=== PATIENT | male | born 1965 | race Caucasian/White ===

== ENCOUNTER 2023-08-17 10:14 | Emergency (ER) | payer OTHER, SELFPAY ==
[2023-08-17 10:15] VITALS: BP 137/104
--- NOTE | 2023-08-17 13:35 | ED.GENMED ---
History of Present Illness
General
Chief Complaint: Rectal Bleeding
Source: patient
Exam Limitations: none
Time Seen by Provider: 08/17/23 10:47
Nursing documentation reviewed up to this point in time: agreed with
Travel History
Have you had any contact with someone who has COVID-19?: No
Do you have any symptoms of coronavirus? Fever > 100 degrees, chills, cough, shortness of breath, sore throat, loss of taste or smell, muscle aches, or headache?: No
History of Present Illness
History of Present Illness:
Patient presents to ED for evaluation for possible bleeding external hemorrhoid, noted today. Patient states that he has known for some time that he does have small external hemorrhoid, which had blood in the past intermittently with large bowel
movement or when he wiped. Today, when he had finished showering, when he was drying himself off, noted that there was blood on his towel. Since then, he has had continued bleeding when wiping. Denies rectal pain. Denies fever or chills. Denies
abdominal pain. Denies nausea or vomiting. Denies recent change in medications or diet.
Past History
Past History
ED Past Medical History: COPD and Psychiatric
ED Past Surgical History: None
Social History
Tobacco: Former smoker
Alcohol: None
Review of Systems
Review of Systems
Allergies reviewed?: Yes
All Other Systems: ROS reviewed and negative except as documented in HPI and ROS
Constitutional: Reports no symptoms; Denies fever
ABD/GI: Reports no symptoms
Musculoskeletal: Reports no symptoms
Skin: Reports other (Bleeding hemorrhoid)
Neurological: Reports no symptoms
Phy Exam
Physical Exam
Physical Exam:
Physical Exam
General: no apparent distress, not acutely ill. afebrile.
Head: nc/at. eomi
Neck: supple. no meningeal signs.
Abdomen: normal bowel sounds. not tender. rectal exam: an approx 3cm diameter right external hemorrhoid, non-thrombosed noted with 0.5 cm opening with clots.
Neuro: alert and oriented. no focal neurological deficits
Skin: no rash
Psychiatric: well kept. interactive and cooperative
Extremities: no edema. no calf tenderness.
Course
Orders/Labs/Results
Orders:
Orders
08/17/23 14:11
Complete Blood Count/No Diff Urgent
Abnormal Lab Results
08/17/23
14:11
MCH 31.8 H pg
(27.0-31.0)
MPV 11.0 H fL
(7.4-10.4)
08/17/23 14:11
Vital Signs
Initial and Last Documented VS:
Initial Vital Signs
Temp Pulse Resp BP Pulse Ox
98.2 F 92 16 137/104 98
08/17/23 10:15 08/17/23 10:15 08/17/23 10:15 08/17/23 10:15 08/17/23 10:15
Last Documented Vital Signs
Temp Pulse Resp BP Pulse Ox
98.2 F 68 16 122/79 99
08/17/23 10:15 08/17/23 13:43 08/17/23 13:43 08/17/23 15:58 08/17/23 15:58
MDM/Problems Addressed
MDM/Problems Addressed:
Pt without acute bleeding during exam.
H/H stable. Discussed with (colorectal surgery) - will re-evaluate the patient in office this week and recommends application of Anusol cream BID until then.
*Critical Care Note
Total Time (30-74mins, 75-104mins- exclusive of procedures): Not Applicable
ED Attending Note
-
Portions of this chart may have been created with voice recognition software.� Occasional wrong word or��sound alike� substitutions may have occurred due to the inherent limitations of voice recognition software.
Discharge Plan
Departure
Patient Disposition: Home (Routine Discharge)
Date of Disposition: 08/17/23
Time of Disposition: 15:38
Patient with high blood pressure during this ER visit?: Yes
Condition: Good
Discharge Problem:
External hemorrhoid, bleeding
Instructions: Hemorrhoids (DC)
Prescriptions:
New
hydrocortisone [Anusol-HC] 2.5 % cream with perineal applicator
1 applic OH BID Qty: 30 0RF
No Action
ziprasidone HCl 80 mg Capsule
80 mg PO QPM
clonazepam 0.5 mg Tablet
0.5 mg PO TID@0700,12,1600
Patient Comments:
08/17/2023, pt. filled this med. on 08/01/2023 for 45 tablets according to PDMP.
tamsulosin 0.4 mg Capsule
0.4 mg PO DAILY PRN (Reason: prostate)
Patient Comments:
08/17/2023, pt. does not take routinely.
divalproex 500 mg Tablet Extended Release 24 Hr
1,000 mg PO HS
valsartan 320 mg Tablet
320 mg PO DAILY PRN (Reason: blood pressure)
Patient Comments:
08/17/2023, pt. does not take routinely.
dorzolamide-timolol 22.3-6.8 mg/mL drops
1 drp BOTH EYES BID
albuterol sulfate 90 mcg/actuation Hfa Aerosol Inhaler
1 puff INHALATION R Q4HPRN PRN (Reason: sob)
rosuvastatin 40 mg Tablet
40 mg PO DAILY PRN (Reason: cholesterol)
Patient Comments:
08/17/2023, pt. does not take routinely.
Spiriva Respimat 2.5 mcg/actuation Mist
2 puff INHALATION R DAILY PRN (Reason: sob)
Patient Comments:
08/17/2023, pt. does not take routinely.
PreserVision AREDS
2 tab PO DAILY
Referrals:
Sirisha Miller MD [Family Provider] -
Denny Holbrook MD [Active] -
Activity Restrictions/Additional Instructions:
As discussed, please follow-up with referred colorectal surgeon this week for reevaluation. Your prescription has been sent electronically to [facility] in [place]. Please apply prescribed cream to affected area twice daily until
re-evaluation.
Interventions
Interventions:
*Risk Screen - Suicide Last Done: 08/17/23 15:58
*General Assessment Last Done: 08/17/23 11:15
*Neglect/Abuse Screening Last Done: 08/17/23 15:58
ED- Fall Risk Assessment Last Done: 08/17/23 15:58
*ED COVID-19 Vaccine History Last Done: 08/17/23 10:15
*Nursing Disposition Last Done: 08/17/23 15:58
ID-Svzouj-Illzwzmtvs Assessment Last Done: 08/17/23 11:15
ED- Cardiac Assessment Last Done: 08/17/23 11:15
ED- Pulmonary Assessment Last Done: 08/17/23 11:15
Discharge Date and Time
Discharge Date/Time: 08/17/23 16:00
[2023-08-17 13:43] VITALS: BP 122/79
[2023-08-17 15:21] LABS: Hematocrit 46.1 % (39.0-52.0); Hemoglobin 16.3 g/dL (13.0-18.0); Mean Corp Hgb Conc. 35.4 g/dL (33.0-37.0); Mean Corpuscular Hgb 31.8 pg (27.0-31.0); Mean Corpuscular Volume 89.9 fL (80.0-94.0); Platelet Count 170 10^3/uL (130-400); Red Blood Cell Count 5.13 10^6/uL (4.70-6.10); Red Cell Dist. Width 12.6 % (11.5-14.5); White Blood Cell Count 10.6 10^3/uL (4.8-10.8)
[2023-08-17 15:58] VITALS: BP 122/79
== END 2023-08-17 16:00 | disposition home or self-care (01) ==
LOC: EMR 10:14
PROVIDERS: EMERGENCY PHYSICIAN Emergency Medicine; FAMILY PHYSICIAN Family Medicine
DX: K64.4 Residual hemorrhoidal skin tags (principal); K62.5 Hemorrhage of anus and rectum; R03.0 Elevated blood-pressure reading, without diagnosis of hypertension; J44.9 Chronic obstructive pulmonary disease, unspecified; Z87.891 Personal history of nicotine dependence
CPT/HCPCS: 99283; 85027